=== PATIENT | male | born 1960 | race Caucasian/White ===

== ENCOUNTER → 2016-05-11 | Outpatient (CLI) | payer OTHER | END | disposition home or self-care (01) | LOC: PCVCCLINIC 13:44 | PROVIDERS: ATTEND Internal Medicine Cardiovascular Disease | DX: I10 Essential (primary) hypertension (principal); E78.5 Hyperlipidemia, unspecified; F17.200 Nicotine dependence, unspecified, uncomplicated | CPT/HCPCS: 93005; 93325; 93351; 93880 ==

== ENCOUNTER → 2018-10-25 | Outpatient (CLI) | payer OTHER ==
--- NOTE | 2018-10-25 14:24 | PCVCIMAG ---
APPROVED REPORT Study performed: 10/25/2018 13:00:41 Exam: Stress Echocardiogram Indication: elevated coronary calcium score, htn, hlp, hx former smoker, fatigue Patient Location: Echo lab Stress Nurse: Paty Graves RN Status: routine Ht: 5 ft 11 in HR: 81 bpm BP: 112/76 mmHg Rhythm: NSR Procedure The patient underwent an Exercise Stress Test using the Bhavin Protocol. Blood pressure, heart rate, and EKG were monitored. An Echocardiogram was performed by process technician in four stages in quad fashion. At peak stress, four selected images were obtained and placed side by side with resting images for comparison. Stress Test Details Stress Test: Exercise stress testing was performed using a Bhavin protocol. HR Resting HR: 81 bpmMax Heart Rate (APMHR): 160 bpm Max HR Achieved: 155 bpmTarget HR (85% APMHR): 136 bpm % of APMHR: 96 Recovery HR: 91 bpm HR response to stress: Normal HR response to stress BP Resting BP: 112/76 mmHg Max BP: 162/68 mmHg Recovery BP: 118/70 mmHg BP response to stress: Normal blood pressure response to stress. ECG Resting ECG: Sinus Rhythm Stress ECG: Sinus Rhythm ST Change: Normal Arrhythmia: PVCs Recovery ECG: Sinus Rhythm Recovery ST Change: Normal Recovery Arrhythmia: couplet and triplet PVCs that resolved in recovery Clinical Reason for Termination: Maximal effort Stress Symptoms: Dyspnea Exercise duration: 9 min sec Highest Stage Achieved: Stage 3: 3.4 mph at 14% grade. Exercise capacity: 10.1 METs Overall Exercise Capacity for Age: Normal Scale: Sedentary Angina Score: None Pre-Stress Echo The resting Echocardiogram showed normal left ventricular contractility with an estimated Ejection Fraction of about >55%. Normal wall motion in all segments on baseline images. Post-Stress Echo The stress Echocardiogram showed normal left ventricular contractility with an estimated Ejection Fraction of about 65%. Normal augmentation of wall motion in all segments on post stress images. Clinical No clinical or ECG evidence for ischemia. Conclusion Clinical Response: Non-ischemic Exercise Capacity: Average Stress ECG Response: Non-ischemic Stress Echo Images: Non-ischemic The left ventricle is normal in size and wall thickness in both the rest and stress images. Normal color doppler. No regurgitation or stenosis present on pulmonic, mitral, tricuspid or aortic valves. Trace tricuspid regurgitation with PAP of 30 mmHg. Other Information Study Quality: Adequate <Conclusion> The left ventricle is normal in size and wall thickness in both the rest and stress images. Normal color doppler. No regurgitation or stenosis present on pulmonic, mitral, tricuspid or aortic valves. Trace tricuspid regurgitation with PAP of 30 mmHg.
== END | disposition home or self-care (01) ==
LOC: PCVCIMAG 13:24
PROVIDERS: ATTEND Internal Medicine Cardiovascular Disease
DX: I25.10 Atherosclerotic heart disease of native coronary artery without angina pectoris (principal); I10 Essential (primary) hypertension; E78.5 Hyperlipidemia, unspecified; R68.89 Other general symptoms and signs; I49.3 Ventricular premature depolarization; Z82.49 Family history of ischemic heart disease and other diseases of the circulatory system
CPT/HCPCS: 93325; 93351